=== PATIENT | female | born 1955 | race Caucasian/White ===

== ENCOUNTER 2017-02-24 13:14 | Emergency (ER) | payer BC ==
[2017-02-24] MEDS ORDERED: EYE IRRIGATION SOLU. (SOD BOR/BORIC AC/H20/NACL) 118ML BTL OPTH ONE (13:31)
--- NOTE | 2017-02-24 13:42 | Emergency Department Record ---
History of Present Illness - General Chief complaint: Eye Problem Stated complaint: RT EYE INJURY Time Seen by Provider: 02/24/17 13:28 Source: Patient, RN notes reviewed Mode of Arrival: Ambulatory - History of Present Illness Initial comments: right eye corneal abrasion from an eye drop solution Onset/Timin -: Days(s) Onset Description: Sudden Location: Right eye Place: Home If Injury: None Eye Symptoms: Foreign body sensation, Pain Severity: Mild If Pain, Quality: Aching, Other Consistency: Constant Context: Injury, Other Associated Symptoms: None Treatments Prior to Arrival: None - Related Data Visual acuity (L) = 20/: 20 Visual acuity (R) = 20/: 20 With correction: Yes Home Medications Medication Instructions Recorded Confirmed Last Taken Alprazolam [Xanax] 0.25 mg PO ASDIR PRN tab 05/31/15 02/24/17 Unknown Escitalopram Oxalate [Lexapro] 5 mg PO DAILY tab 05/31/15 02/24/17 Unknown Esomeprazole Magnesium [Nexium 22.3 mg PO DAILY 05/31/15 02/24/17 Unknown 24hr] Allergies Allergy/AdvReac Type Severity Reaction Status Date / Time amoxicillin Allergy Intermediate hives Verified 02/24/17 13:26 Penicillins Allergy Intermediate hives Verified 02/24/17 13:26 azithromycin Allergy HIVES Verified 02/24/17 13:26 Travel Screening - Travel/Exposure Within Last 30 Days Have you traveled within the last 30 days?: No - Additional Travel Comment Additional Travel/Exposure Comment: right hand Review of Systems Reviewed: No additional complaints except as noted below Constitutional: Reports: As per HPI. Denies: Chills, Fever, Malaise, Night sweats, Weakness, Weight change Eyes: Reports: As per HPI. Denies: Eye discharge, Eye pain, Photophobia, Vision change ENT: Reports: As per HPI. Denies: Congestion, Dental pain, Ear pain, Epistaxis , Hearing loss, Throat pain Respiratory: Reports: As per HPI. Denies: Cough, Dyspnea, Hemoptysis, Stridor, Wheezes Cardiovascular: Reports: As per HPI. Denies: Arrhythmia, Chest pain, Dyspnea on exertion, Edema, Murmurs, Orthopnea, Palpitations, Paroxysmal nocturnal dyspnea, Rheumatic Fever, Syncope Endocrine: Reports: As per HPI. Denies: Fatigue, Heat or cold intolerance, Polydipsia, Polyuria Gastrointestinal: Reports: As per HPI. Denies: Abdominal pain, Constipation, Diarrhea, Hematemesis, Hematochezia, Melena, Nausea, Vomiting Genitourinary: Reports: As per HPI. Denies: Abnormal menses, Discharge, Dyspareunia, Dysuria, Frequency, Hematuria, Incontinence, Retention, Urgency Musculoskeletal: Reports: As per HPI. Denies: Arthralgia, Back pain, Gout, Joint swelling, Myalgia, Neck pain Skin: Reports: As per HPI. Denies: Bruising, Change in color, Change in hair/ nails, Lesions, Pruritus, Rash Neurological: Reports: As per HPI. Denies: Abnormal gait, Confusion, Headache, Numbness, Paresthesias, Seizure, Tingling, Tremors, Vertigo, Weakness Psychiatric: Reports: As per HPI. Denies: Anxiety, Auditory hallucinations, Depression, Homicidal thoughts, Suicidal thoughts, Visual hallucinations Hematological/Lymphatic: Reports: As per HPI. Denies: Anemia, Blood Clots, Easy bleeding, Easy bruising, Swollen glands Past Medical History - SOCIAL HISTORY Smoking Status: Never smoker Alcohol Use: None Drug Use: None - RESPIRATORY Hx Respiratory Disorders: No - CARDIOVASCULAR Hx Cardio Disorders: No - NEURO Hx Neuro Disorders: No - GI Hx GI Disorders: No - Hx Genitourinary Disorders: No - ENDOCRINE Hx Endocrine Disorders: No - MUSCULOSKELETAL Hx Musculoskeletal Disorders: No - PSYCH Hx Psych Problems: Yes Hx Anxiety: Yes (panic attacks) - HEMATOLOGY/ONCOLOGY Hx Hematology/Oncology Disorders: No Family Medical History Any Significant Family History?: No Physical Exam - General General Appearance: Alert, Oriented x3, Cooperative, No acute distress - Head Head exam: Normal inspection - Eye Eye exam: Normal appearance, PERRL, Conjunctival injection, Other (fluscein positive medial eye subconjuntivea) Pupils: Normal accommodation Visual acuity (L) = 20/: 20 Visual acuity (R) = 20/: 20 With correction: Yes - ENT ENT exam: Normal exam, Mucous membranes moist, Normal external ear exam, Normal orophraynx, TM's normal bilaterally Ear exam: Normal external inspection. negative: External canal tenderness Nasal Exam: Normal inspection. negative: Discharge, Sinus tenderness Mouth exam: Normal external inspection, Tongue normal Teeth exam: Normal inspection. negative: Dental caries Throat exam: Normal inspection. negative: Tonsillar erythema, Tonsillar exudate - Neck Neck exam: Normal inspection, Full ROM. negative: Tenderness - Respiratory Respiratory exam: Normal lung sounds bilaterally. negative: Respiratory distress - Cardiovascular Cardiovascular Exam: Regular rate, Normal rhythm, Normal heart sounds - GI/Abdominal GI/Abdominal exam: Soft, Normal bowel sounds. negative: Tenderness - Rectal Rectal exam: Deferred - exam: Deferred - Extremities Extremities exam: Normal inspection, Full ROM, Normal capillary refill. negative: Tenderness - Back Back exam: Reports: Normal inspection, Full ROM. Denies: Muscle spasm, Rash noted, Tenderness - Neurological Neurological exam: Alert, Normal gait, Oriented X3, Reflexes normal - Psychiatric Psychiatric exam: Normal affect, Normal mood - Skin Skin exam: Dry, Intact, Normal color, Warm Course Vital Signs 02/24/17 13:18 Temperature 97.8 F Pulse Rate 89 Respiratory 20 Rate Blood Pressure 119/90 Pulse Ox 98 - Reevaluation(s) Reevaluation #1: talked about antibiotic drops but she is allergic to lots of antibiotics so will not do antibiotic drops 02/24/17 13:40 Disposition Clinical Impression: Corneal abrasion Qualifiers: Encounter type: initial encounter Laterality: right Qualified Code(s): S05.01XA - Injury of conjunctiva and corneal abrasion without foreign body, right eye, initial encounter Disposition: Home, Self-Care Condition: (1) Good Instructions: Corneal Abrasion (ED) Additional Instructions: keep eye closed as much as possible Forms: Patient Portal Access Time of Disposition: 13:40 Quality - Quality Measures Quality Measures: N/A - Blood Pressure Screening Does Patient Have Any of the Following: No Blood Pressure Classification: Hypertensive Reading Systolic Measurement: 119 Diastolic Measurement: 90 Screening for High Blood Pressure: < Pre-Hypertensive BP, F/U Documented > [ G8950] Pre-Hypertensive Follow-up Interventions: Referral to alternative/primary care provider.
== END 2017-02-24 14:00 | disposition home or self-care (01) ==
LOC: ER 13:14
DX: S05.01XA Injury of conjunctiva and corneal abrasion without foreign body, right eye, initial encounter (principal); Y92.009 Unspecified place in unspecified non-institutional (private) residence as the place of occurrence of the external cause
CPT/HCPCS: 99282

== ENCOUNTER 2019-05-22 12:33 | Emergency (ER) | payer BC ==
--- NOTE | 2019-05-22 13:14 | Emergency Department Record ---
History of Present Illness - General Chief complaint: Eye Problem Stated complaint: VISION CHANGES Time Seen by Provider: 05/22/19 12:53 Source: Patient Mode of Arrival: Ambulatory Limitations: No limitations - History of Present Illness Initial comments: 64 yo female presents after about thirty minutes of "kaleidoscope" like vision changes on Sunday. The symptoms came on while she was doing her make up and then resolved. This was follow up by pressure behind the eye on the left. The symptoms did occur in the past. She states the symptoms were only in the left eye. She denies any loss of vision. No current vision changes. No kaleidoscope sensation now. She saw her eye doctor the next day. She states she was told her examination was normal. 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 She called her head golf coach and was directed to the ED. She has not contacted her neuro-store coordinator to this point. She states her work up with her neuro-store coordinator was negative in the past for double vision and similar kaleidoscope vision. Since Sunday she has not had any return of any of the symptoms. chief complaint: Vision change -: Days(s) (2 days ago) Onset Description: Sudden Location: Left eye Place: Home If Injury: None Eye Symptoms: Other (altered vision) Severity: Moderate If Pain, Quality: Other Consistency: Now resolved Context: Other (glasses) Associated Symptoms: Headache (pressure at that time) Treatments Prior to Arrival: None - Related Data Allergies Allergy/AdvReac Type Severity Reaction Status Date / Time amoxicillin Allergy Intermediate hives Verified 02/24/17 13:26 Penicillins Allergy Intermediate hives Verified 02/24/17 13:26 azithromycin Allergy HIVES Verified 02/24/17 13:26 Review of Systems Constitutional: Denies: Chills, Fever, Malaise, Weakness Eyes: Reports: Eye pain, Vision change. Denies: Eye discharge, Photophobia, Other ENT: Denies: Congestion, Ear pain Respiratory: Denies: Cough, Dyspnea, Stridor, Wheezes Cardiovascular: Denies: Chest pain Endocrine: Denies: Fatigue Gastrointestinal: Denies: Abdominal pain, Diarrhea, Nausea, Vomiting Genitourinary: Denies: Dysuria, Frequency Musculoskeletal: Denies: Arthralgia, Back pain, Myalgia, Neck pain Skin: Denies: Bruising, Change in color, Rash Neurological: Reports: Headache. Denies: Numbness, Paresthesias, Weakness Psychiatric: Denies: Anxiety Hematological/Lymphatic: Denies: Easy bleeding, Easy bruising Past Medical History - SOCIAL HISTORY Smoking Status: Never smoker Drug Use: None - RESPIRATORY Hx Respiratory Disorders: No - CARDIOVASCULAR Hx Cardio Disorders: No - NEURO Hx Neuro Disorders: No - GI Hx GI Disorders: No - Hx Genitourinary Disorders: No - ENDOCRINE Hx Endocrine Disorders: No - MUSCULOSKELETAL Hx Musculoskeletal Disorders: No - PSYCH Hx Psych Problems: Yes Hx Anxiety: Yes (panic attacks) - HEMATOLOGY/ONCOLOGY Hx Hematology/Oncology Disorders: No Physical Exam - General General Appearance: Alert, Oriented x3, Cooperative, No acute distress Limitations: No limitations - Head Head exam: Atraumatic, Normal inspection - Eye Eye exam: Normal appearance, PERRL, EOMI. negative: Conjunctival injection, Nystagmus, Periorbital swelling, Periorbital tenderness, Scleral icterus - ENT ENT exam: Normal exam, Mucous membranes moist, TM's normal bilaterally Ear exam: Normal external inspection Nasal Exam: Normal inspection Mouth exam: Normal external inspection Teeth exam: Normal inspection Throat exam: Normal inspection - Neck Neck exam: Normal inspection - Respiratory Respiratory exam: Normal lung sounds bilaterally. negative: Respiratory distress - Cardiovascular Cardiovascular Exam: Regular rate, Normal rhythm, Normal heart sounds - GI/Abdominal GI/Abdominal exam: Soft. negative: Tenderness - Rectal Rectal exam: Deferred - exam: Deferred - Extremities Extremities exam: Normal inspection. negative: Pedal edema, Tenderness - Back Back exam: Denies: CVA tenderness (R), CVA tenderness (L) - Neurological Neurological exam: Alert, CN II-XII intact, Normal gait, Oriented X3, Other (Normal APRIL, Normal FTN, no ataxia, normal ambulation, normal speech). negative: Altered, Motor sensory deficit, Reflexes normal - Psychiatric Psychiatric exam: Normal affect, Normal mood. negative: Agitated, Anxious - Skin Skin exam: Dry, Intact, Normal color, Warm Course - Reevaluation(s) Reevaluation #1: 05/22/19 13:44 CBC is normal 05/22/19 14:03 The HCT is negative for acute process 05/22/19 14:06 The labs were reviewed No acute lab abnormalities 05/22/19 14:19 The work up is negative The symptoms may represent an ocular migraine. No signs of acute or old strokes The patient has already seen her store coordinator. I recommend close follow up with neuro-store coordinator I called Dr Gutierres's office to facilitate a follow up appointment. Medical Decision Making - Lab Data Result diagrams: 05/22/19 13:25 05/22/19 13:25 Disposition Disposition: Discharge Clinical Impression: Vision changes Disposition: Home, Self-Care Condition: (1) Good Instructions: Ocular Migraine (ED) Additional Instructions: Review this ER visit and the tests performed with your doctor Call your doctor for the next available follow up appointment as well as follow up with your neuro- store coordinator Return to the ER for a recheck if worse, any new concerns or questions Referrals: ROLAN GUTIERRES D.O. [DOCTOR OF OSTEOPATH] - Forms: Patient Portal Access Time of Disposition: 14:18 Quality - Quality Measures Quality Measures: N/A - Blood Pressure Screening Does Patient Have Any of the Following: No Blood Pressure Classification: Pre-Hypertensive BP Reading Systolic Measurement: 120 Diastolic Measurement: 88 Screening for High Blood Pressure: < Pre-Hypertensive BP, F/U Documented > [G8950] Pre-Hypertensive Follow-up Interventions: Referral to alternative/primary care provider.
[2019-05-22 13:32] LABS: ABSOLUTE NEUTROPHIL COUNT 4.03; BASO % 1.9 % (0-6); EOS % 3.7 % (0-6); GRAN % 57.3 % (47-80); HEMATOCRIT 44.6 % (35.0-47.0); HEMOGLOBIN 14.4 gm/dl (11.6-16.0); LYMPH % 24.1 % (16-45); MEAN CELL VOLUME 95.3 fl (81-97); MEAN CORPUSCULAR HEMOGLOBIN 30.8 pg (27-33); MEAN CORPUSCULAR HGB CONC 32.3 g/dl (32-36); MEAN PLATELET VOLUME 9.4 fl (7.4-10.4); PLATELET COUNT 274 K/uL (130-400); RED BLOOD COUNT 4.68 M/uL (3.80-5.40); RED CELL DISTRIBUTION WIDTH 14.3 % (11.5-14.5)
[2019-05-22 13:45] LABS: BLOOD UREA NITROGEN 16 mg/dL (8-23); CREATININE 0.8 mg/dL (0.5-0.9); EST GLOMERULAR FILTRATION RATE > 60 mL/min
[2019-05-22 13:48] LABS: GLUCOSE,RANDOM 117 mg/dL (74-109)
--- NOTE | 2019-05-22 13:53 | CT SCAN REPORT ---
EXAMINATION: CT Head without IV Contrast EXAM DATE: 05/22/2019 1:39 PM TECHNIQUE: Standard protocol CT images of the head were obtained without intravenous contrast. Zaidi l and sagittal reconstructed images were created. INDICATION: vision changes COMPARISON: None HAND DOMINANCE: Unknown. ENCOUNTER: Not applicable FINDINGS: No acute intracranial hemorrhage or acute cortical infarct evident. Some subtle low-attenuation is ch anges in the white matter are nonspecific and not unusual for age. No mass, focal edema or focal volu me loss. No hydrocephalus. Small cavum vellum interpositum noted incidentally. IMPRESSION: No acute intracranial process evident. Dictated by: Tobin Richter MD on 05/22/2019 1:48 PM. .
== END 2019-05-22 14:31 | disposition home or self-care (01) ==
LOC: ER 12:33
DX: H53.9 Unspecified visual disturbance (principal); R51 Headache
CPT/HCPCS: 70450; 80048; 85025; 99284